=== PATIENT | male | born 1995 | race Caucasian/White ===

== ENCOUNTER 2018-01-08 22:21 | Emergency (ER) | payer OTHER, SELFPAY ==
[2018-01-08 22:25] VITALS: BP 120/71; PULSE 58; RESP 16; TEMP 37.1; O2SAT 95; BMI 25.0
--- NOTE | 2018-01-08 22:58 | ED_ITS ---
HPI - Skin/Abscess/Foreign Bdy General Chief complaint: Skin/Abscess/Foreign Body Stated complaint: laceration to right hand index finger Time Seen by Provider: 01/08/18 22:24 Source: patient Mode of arrival: ambulatory Limitations: no limitations History of Present Illness HPI narrative: Otherwise healthy 22-year-old male here for evaluation of a cut to his right index finger. Patient states that he was cleaning a glass when it broke and he cut his finger. States that his last tetanus shot was approximately 7 years ago. Other than covering the wound patient has done nothing prior to arrival. Related Data Previous Rx's Medication Instructions Recorded dextroamphetamine-amphetamine 10 10 mg PO BID #60 tab MDD 20MG 11/30/17 mg tablet Allergies Allergy/AdvReac Type Severity Reaction Status Date / Time No Known Drug Allergies Allergy Verified 01/08/18 22:30 Review of Systems Musculoskeletal Comments: Tender only over the area of the laceration to his right index finger otherwise no other musculoskeletal complaints Integumentary/Breasts Comments: Cut to his right index finger Neurologic Comments: No numbness or tingling in the right hand Hematologic/Lymphatic Denies easy bleeding and Denies easy bruising [facility] Medical History Healthy adult (Acute) Surgical History No history of previous surgery (Acute) Exam Initial Vital Signs Initial Vital Signs: Vital Signs Temperature 98.7 F 01/08/18 22:25 Pulse Rate 58 L 01/08/18 22:25 Respiratory Rate 16 01/08/18 22:25 Blood Pressure 120/71 01/08/18 22:25 Pulse Oximetry 95 01/08/18 22:25 Const General: cooperative, healthy appearing, comfortable, well developed, well groomed and No acute distress Orientation: alert, awake and oriented x3 Cardio Pulses: radial pulses present on the right Skin Other: 3 cm U shaped laceration to the radial aspect of his right index finger between the MCP and PIP joint. Oozing but no active bleeding Neuro Other: Sensation intact to light touch right hand Extrem Other: Full range of motion of the MCP PIP and MP joint of the right index finger Psych Appearance: grossly normal and well kempt Procedures Laceration Repair Laceration 1: Site: hand Side (If applicable): right Size (cm): 3 Description: other (U shaped) Depth: simple, single layer Local Anesthetic: lidocaine 1% Amount of anesthesia used (mL): 3 Pre-repair: wound explored, irrigated extensively and deep structures intact Skin layer closed with: nylon Size (cm): 5-0 Number of sutures: 6 Technique: simple, interrupted Course Vital Signs - 8 hr 01/08/18 22:25 01/08/18 23:11 Temperature 98.7 F Pulse Rate 58 L 74 Respiratory Rate 16 16 Blood Pressure 120/71 113/71 Pulse Oximetry 95 100 MDM - Skin/Abscess/Foreign Bdy MDM Narrative Medical decision making narrative: Patient declined the offer for an update of his tetanus shot. Patient is at low risk for tetanus. Wound was irrigated and closed as above. Was neurovascularly intact. He was given care instructions. He was instructed that he needed to have the stitches removed in 10 days. L and I paperwork completed. Patient expressed understanding and agreement with plan Discharge Plan Departure Patient Disposition: Home Clinical Impression: Finger laceration Discharge Date/Time: 01/08/18 23:12 Interventions: ED Discharge Assessment Last Done: 01/08/18 23:11 Instructions: DI for Laceration Repair -- Finger Activity Restrictions/Additional Instructions: Keep the bandage on for the next 24 hr. After that you can take the bandage off and shower like normal and wash your hands like normal. You can use soap and water. Do not soak her hand anything. The stitches to need to be removed in 10 days. Call your primary care doctor for this. Return to the emergency department for any new or worsening symptoms Prescriptions: No Action dextroamphetamine-amphetamine [Adderall] 10 mg tablet 10 mg PO BID MDD 20MG Qty: 60 RF: 0
[2018-01-08 23:11] VITALS: BP 113/71; PULSE 74; RESP 16; O2SAT 100
== END 2018-01-08 23:12 | disposition home or self-care (01) ==
PROVIDERS: Emergency Provider Emergency Medicine
DX: S61.210A Laceration without foreign body of right index finger without damage to nail, initial encounter (principal); W25.XXXA Contact with sharp glass, initial encounter
CPT/HCPCS: 12002; 99282

== ENCOUNTER 2020-07-18 14:15 | Emergency (ER) | payer OTHER, SELFPAY ==
[2020-07-18 14:22] VITALS: BP 123/80; PULSE 86; RESP 16; TEMP 36.2; O2SAT 98; BMI 23.7
--- NOTE | 2020-07-18 14:42 | ED.WOUNDLAC ---
HPI - Wound/Laceration <TAVON Enrique - Last Filed: 07/18/20 15:57> General Chief Complaint: Wound/Laceration Stated Complaint: wound right thumb, work injury Time Seen by Provider: 07/18/20 14:21 Source: patient Mode of arrival: Ambulatory History of Present Illness HPI narrative: 24yo male presents to the ED for a cut to his right thumb. He states he was at work and accidentally had a razor blade slipped and cut his thumb. He reports bleeding was controlled with pressure. He denies any difficulty moving his thumb, fevers, chills, nausea, vomiting, diarrhea, chest pain, shortness of breath, or any other concerns. Patient is unsure when last Tdap was. Related Data Previous Rx's Medication Instructions Recorded dextroamphetamine-amphetamine 10 10 mg PO BID #60 tab MDD 20MG //18 mg tablet Allergies Allergy/AdvReac Type Severity Reaction Status Date / Time No Known Drug Allergies Allergy Verified 07/18/20 14:23 Review of Systems <TAVON Enrique - Last Filed: 07/18/20 15:57> Review of Systems Narrative: REVIEW OF SYSTEMS: GENERAL: Denies fever or chills. HENT: Denies head trauma. CARDIOVASCULAR: Denies syncope. INTEGUMENTARY: Complains of R thumb laceration, see HPI. NEURO: Denies numbness or tingling. Patient History <TAVON Enrique - Last Filed: 07/18/20 15:57> Medical History (Updated 07/18/20 @ 15:17 by TAVON Enrique) Healthy adult Surgical History No history of previous surgery alcohol intake frequency: a few times a month Substance Use Type: does not use Exam <TAVON Enrique - Last Filed: 07/18/20 15:57> Initial Vital Signs Initial Vital Signs: Vital Signs Temperature 97.2 F L 07/18/20 14:22 Pulse Rate 86 07/18/20 14:22 Respiratory Rate 16 07/18/20 14:22 Blood Pressure 123/80 07/18/20 14:22 Pulse Oximetry 98 07/18/20 14:22 PHYSICAL EXAMINATION: GENERAL: Awake and alert. HENT: Normocephalic, atraumatic. RESPIRATORY: Normal respiratory rate, trachea midline, airway patent. No stridor, nasal flaring or accessory muscle use. MUSCULOSKELETAL: Patient has full range of motion of dip and MCP joint of right thumb. Normal gait and coordination. Equal tone and mass bilaterally. EXTREMITIES: CMS intact. Moves all extremities. SKIN: Warm, dry, soft, appropriate color for ethnicity. A linear laceration approximately 2.5 cm in length noted to tip of right thumb. No concern for tendon or bone involvement. Wound was irrigated, no foreign bodies. NEURO: Alert and Oriented X 3. Good coordination. PSYCH: Appropriate affect and mood. <Anshul Porras DO - Last Filed: 07/18/20 16:05> Initial Vital Signs Initial Vital Signs: Vital Signs Temperature 97.2 F L 07/18/20 14:22 Pulse Rate 86 07/18/20 14:22 Respiratory Rate 16 07/18/20 14:22 Blood Pressure 123/80 07/18/20 14:22 Pulse Oximetry 98 07/18/20 14:22 Procedures <TAVON Enrique - Last Filed: 07/18/20 15:57> Laceration Repair Laceration 1: Site: lower extremity Side (If applicable): right Size (cm): 2.5 Description: linear Depth: simple, single layer Local Anesthetic: lidocaine 1% and with bicarb Amount of anesthesia used (mL): 3 Pre-repair: wound explored and irrigated extensively Skin layer closed with: nylon Size (cm): 4-0 Number of sutures: 4 Technique: simple, interrupted Course <TAVON Enrique - Last Filed: 07/18/20 15:57> Course Course Narrative: Wound was irrigated, sutures were placed. Patient tolerated procedure well, see procedure note. Tdap was updated. Patient drop initially requested a drug screen, cannot provide we will drug screen at this facility, he was encouraged to follow per instruction of work. Orders Ordered: ED Orders 07/18/20 15:30 Urine Drug Screen, Rapid Stat Discontinued Medications Bacitracin (Bacitracin Oint 0.9 Gm Pckt) 1 applic TOP NOW ONE Stop: 07/18/20 15:11 Last Admin: 07/18/20 15:12 Dose: 1 applic Documented by: RAGINI Diphtheria/Tetanus/Acell Pertussis (Tet,Diph,Pertuss(Acell),Vac/Pf 0.5 Ml Syringe) 0.5 ml IM .ONCE ONE Stop: 07/18/20 14:41 Last Admin: 07/18/20 14:46 Dose: 0.5 ml Documented by: RAGINI Lidocaine/Sodium Bicarbonate (Lido 1%/Sod Bicarb 8.4% (10ml) 10 Ml Syringe) 10 ml INJ NOW ONE Stop: 07/18/20 14:41 Last Admin: 07/18/20 14:47 Dose: 10 ml Documented by: RAGINI Vital Signs Vital signs: Vital Signs - 8 hr 07/18/20 14:22 Temperature 97.2 F L Pulse Rate 86 Respiratory Rate 16 Blood Pressure 123/80 Pulse Oximetry 98 <Anshul Porras DO - Last Filed: 07/18/20 16:05> Orders Ordered: ED Orders 07/18/20 15:30 Urine Drug Screen, Rapid Stat Discontinued Medications Bacitracin (Bacitracin Oint 0.9 Gm Pckt) 1 applic TOP NOW ONE Stop: 07/18/20 15:11 Last Admin: 07/18/20 15:12 Dose: 1 applic Documented by: RAGINI Diphtheria/Tetanus/Acell Pertussis (Tet,Diph,Pertuss(Acell),Vac/Pf 0.5 Ml Syringe) 0.5 ml IM .ONCE ONE Stop: 07/18/20 14:41 Last Admin: 07/18/20 14:46 Dose: 0.5 ml Documented by: RAGINI Lidocaine/Sodium Bicarbonate (Lido 1%/Sod Bicarb 8.4% (10ml) 10 Ml Syringe) 10 ml INJ NOW ONE Stop: 07/18/20 14:41 Last Admin: 07/18/20 14:47 Dose: 10 ml Documented by: RAGINI Vital Signs Vital signs: Vital Signs - 8 hr 07/18/20 14:22 Temperature 97.2 F L Pulse Rate 86 Respiratory Rate 16 Blood Pressure 123/80 Pulse Oximetry 98 MDM - Wound/Laceration <TAVON Enrique - Last Filed: 07/18/20 15:57> Medical Records Attestation: I reviewed the patient's medical records. Lab Data Attestation: I reviewed the patient's lab results. Labs: Lab Results 07/18/20 Range/Units 15:30 U Opiates 300ng/mL cut Negative (Negative) Ur Oxycodone Screen Negative (Negative) Urine Methadone Screen Negative (Negative) Ur Barbiturates Screen Negative (Negative) U Tricyclic Antidepress Negative (Negative) Ur Phencyclidine Scrn Negative (Negative) Ur Amphetamines Screen Negative (Negative) U Methamphetamines Scrn Negative (Negative) Ur MDMA Scrn (Ecstasy) Negative (Negative) U Benzodiazepines Scrn Negative (Negative) Urine Cocaine Screen Negative (Negative) U Marijuana (THC) Screen Negative (Negative) MDM Narrative Medical decision making narrative: History and examination reveal a simple laceration without concerns of infection at this time. Wound was irrigated extensively. No concerns for bony involvement given location and superficial wound bed visualization. Full range of motion intact without tendon compromise. No concerns of infection. Sutures were placed. Patient tolerated this well. L&I paperwork was filled out. Return precautions given for new or worsening symptoms. Patient was encouraged to follow up in 10-14 days for removal of sutures. Consult extensively about monitoring for infection. <Anshul Porras, DO - Last Filed: 07/18/20 16:05> Lab Data Labs: Lab Results 07/18/20 Range/Units 15:30 U Opiates 300ng/mL cut Negative (Negative) Ur Oxycodone Screen Negative (Negative) Urine Methadone Screen Negative (Negative) Ur Barbiturates Screen Negative (Negative) U Tricyclic Antidepress Negative (Negative) Ur Phencyclidine Scrn Negative (Negative) Ur Amphetamines Screen Negative (Negative) U Methamphetamines Scrn Negative (Negative) Ur MDMA Scrn (Ecstasy) Negative (Negative) U Benzodiazepines Scrn Negative (Negative) Urine Cocaine Screen Negative (Negative) U Marijuana (THC) Screen Negative (Negative) Discharge Plan Departure Patient Disposition: Home Clinical Impression: Laceration Instructions: DI for Laceration Repair Activity Restrictions/Additional Instructions: Thank you for entrusting me with your care today. As discussed, I have placed 4 sutures in your laceration today, they will need to be removed in approximately 10-14 days. This can be done in the emergency department, the walk-in clinic, or primary care office. We have put a dressing on your wound today, leave this in place for the next 24 hours. After 24 hours, you may remove the dressing and wash the wound gently with soap and water. Apply Neosporin or bacitracin morning and night for the next 2 weeks. Cover the area for the next 2 days and if you are going to get it dirty, otherwise you may leave it open to air. Do not soak the wound in any water such as dishwater or hot tub. No foreign bodies were found in your wound today. While there is low-risk for infection at this time, retained foreign bodies and infection are always possible with any cut or break in the skin. Please monitor the wound closely and be re-evaluated immediately if you develop any signs of infection such as pus, increasing redness, increasing pain, fevers, or any other concerns. We have updated your tetanus vaccination today. We are unable to do your drug test today as we do not have the resources to do a ?legal drug test. Please follow-up with your work about this. Prescriptions: No Action dextroamphetamine-amphetamine [Adderall] 10 mg tablet 10 mg PO BID MDD 20MG Qty: 60 RF: 0 <Anshul Porras, DO - Last Filed: 07/18/20 16:05> [facility] Dr Porras Co-Sign Statement: I was available for consultation during this patient's emergency department visit. This chart is signed by myself for administrative purposes only. I did not have direct contact with this patient during this visit. They were seen independently by the APC.
[2020-07-18] MEDS: TET,DIPH,PERTUSS(ACELL),VAC/PF 0.5 ML SYRINGE IM (14:46)
[2020-07-18] MEDS: LIDO 1%/SOD BICARB 8.4% (10ML) 10 ML SYRINGE INJ (14:47)
[2020-07-18] MEDS: BACITRACIN OINT 0.9 GM PCKT 1 APPLIC TOP (15:12)
[2020-07-18 15:56] LABS: UR Morphine/Opiate cutoff 300 Negative (Negative); Ur Creatinine Normal (Normal); Ur Specific Gravity Normal (Normal); Urine Amphetamines Negative (Negative); Urine Barbiturates Negative (Negative); Urine Benzodiazepines Negative (Negative); Urine Cocaine Negative (Negative); Urine MDMA Negative (Negative); Urine Methadone Negative (Negative); Urine Methamphetamines Negative (Negative); Urine Oxycodone Negative (Negative); Urine Phencyclidine Negative (Negative); Urine Tetrahydrocannabinol Negative (Negative); Urine Tricyclic Antidepressant Negative (Negative); Urine pH Normal (Normal)
== END 2020-07-18 15:43 | disposition home or self-care (01) ==
PROVIDERS: Emergency Provider Nurse Practitioner
DX: S61.011A Laceration without foreign body of right thumb without damage to nail, initial encounter (principal); W26.8XXA Contact with other sharp object(s), not elsewhere classified, initial encounter; Y99.0 Civilian activity done for income or pay; Z23 Encounter for immunization
CPT/HCPCS: 12001; 80305; 90471; 99282; 99283; 90715